=== PATIENT | female | born 1950 | race Caucasian/White ===

== ENCOUNTER → 2019-12-14 | Outpatient (CLI) | payer SELFPAY | LOC: M LABSMTC 14:16 | PROVIDERS: ATTEND Pediatrics | DX: Z20.828 Contact with and (suspected) exposure to other viral communicable diseases (principal) ==

== ENCOUNTER → 2022-11-12 | Outpatient (CLI) | payer MEDICARE, OTHER ==
[2022-11-12 16:58] LABS: BASO % 0.3 % (0.0-1.0); EOS # 0.1 10^3/uL (0.0-0.5); EOS % 0.5 % (0.0-3.0); HEMATOCRIT 41.4 % (36.0-47.0); HEMOGLOBIN 13.3 g/dl (12.0-15.5); LYMPH % 16.7 % (24.0-44.0); MEAN CORPUSCULAR HEMOGLOBIN 28.2 pg (27.0-33.0); MEAN CORPUSCULAR HGB CONC 32.1 g/dl (32.0-36.5); MEAN CORPUSCULAR VOLUME 87.9 fl (80.0-96.0); MONO # 0.8 10^3/uL (0.0-0.8); MONO % 7.1 % (2.0-8.0); NEUTROPHILS # 8.8 10^3/uL (1.5-8.5); PLATELET COUNT, AUTOMATED 242 10^3/uL (150-450); RED BLOOD COUNT 4.71 10^6/uL (4.00-5.40); WHITE BLOOD COUNT 11.8 10^3/uL (4.0-10.0)
[2022-11-12 17:05] LABS: ALBUMIN 3.7 G/DL (3.2-5.2); ALKALINE PHOSPHATASE 60 U/L (46-116); ALT/SGPT 20 U/L (7.0-40); AST/SGOT 13 U/L (<34); BILIRUBIN,TOTAL 0.5 MG/DL (0.3-1.2); BLOOD UREA NITROGEN 13 MG/DL (9-23); CARBON DIOXIDE LEVEL 29 MMOL/L (20-31); CHLORIDE LEVEL 99 MMOL/L (98-107); GLOMERULAR FILTRATION RATE > 60.0 (>39); GLUCOSE, FASTING 388 MG/DL (74-106); POTASSIUM SERUM 4.1 MMOL/L (3.5-5.1); SODIUM LEVEL 136 MMOL/L (136-145); TOTAL PROTEIN 7.3 G/DL (5.7-8.2)
== END ==
LOC: M WUC 13:14
PROVIDERS: ATTEND Physician Assistant
DX: R30.0 Dysuria (principal); R31.9 Hematuria, unspecified

== ENCOUNTER → 2023-03-12 | Outpatient (CLI) | payer MEDICARE ==
[2023-03-12 19:35] LABS: ALBUMIN 3.7 G/DL (3.2-5.2); BLOOD UREA NITROGEN 14 MG/DL (9-23); CALCIUM LEVEL 10.5 MG/DL (8.3-10.6); CARBON DIOXIDE LEVEL 31 MMOL/L (20-31); CHLORIDE LEVEL 106 MMOL/L (98-107); CREATININE FOR GFR 0.74 MG/DL (0.55-1.30); GLOMERULAR FILTRATION RATE > 60.0 (>39); GLUCOSE, FASTING 200 MG/DL (74-106); PHOSPHORUS LEVEL 3.8 MG/DL (2.4-5.1); POTASSIUM SERUM 5.1 MMOL/L (3.5-5.1); SODIUM LEVEL 144 MMOL/L (136-145)
[2023-03-12 19:45] LABS: HEMOGLOBIN A1c 6.8 % (4.0-6.0)
== END ==
LOC: M WUC 15:27
PROVIDERS: ATTEND Physician Assistant
DX: R03.0 Elevated blood-pressure reading, without diagnosis of hypertension (principal); R73.01 Impaired fasting glucose

== ENCOUNTER → 2023-03-21 | Outpatient (CLI) | payer MEDICARE ==
[2023-03-21 13:43] LABS: CREATININE, URINE 88.8 MG/DL
[2023-03-21 13:44] LABS: CHOLESTEROL RISK RATIO 4.57 (<5); HDL CHOLESTEROL 40.9 MG/DL (>40); LDL CHOLESTEROL 117.3 MG/DL (<100); MAGNESIUM LEVEL 1.9 MG/DL (1.8-2.4); NON-HDL-C 146.1 MG/DL
== END ==
LOC: M WUC 09:39
PROVIDERS: ATTEND Nurse Practitioner Family
DX: Z13.220 Encounter for screening for lipoid disorders (principal); R60.0 Localized edema; E55.9 Vitamin D deficiency, unspecified; I10 Essential (primary) hypertension; E11.9 Type 2 diabetes mellitus without complications

== ENCOUNTER 2023-07-17 10:16 | Day surgery (SDC) | payer MEDICARE, MEDICAID ==
[~2023-07-17] VITALS: Ht 152.4 cm; Wt 79.0 kg
[~2023-07-17 10:16] MED LIST: ACET500C10 PO; ATROPINE SULFATE 1% OPHTH SOLN 2ML BTL OD SCH; LISI10TA22 PO; METF500T13 PO; OFLOXACIN 0.3 % (OCUFLOX) OPTH SOL 5ML OD ONE; PHENYLEPHRINE 10% OPHTH SOL 5ML OD PRN; PHENYLEPHRINE 2.5% OPHTH SOL 2ML OD SCH; TOBRADEX OPHTH OINT 3.5 GM As Ordered ONE; TROPICAMIDE 1% OPHTH SOLN 15ML OD SCH
[2023-07-17] MEDS: LIDOCAINE 3.5 % 1ML OPHTH TOPICAL GEL OU ONE (11:01)
[2023-07-17] MEDS ORDERED: MIDAZOLAM INJ 2MG/2ML VIAL As Ordered ONE (11:34)
[2023-07-17] MEDS ORDERED: fentaNYL 100 MCG/2 ML INJECTION As Ordered ONE (11:34)
[2023-07-17] MEDS: LIDOCAINE 1% SDV 5ML VIAL As Ordered ONE (11:51)
[2023-07-17] MEDS: mitoMYcin 0.2 MG/VIAL KIT FOR OPHTHALMIC USE As Ordered ONE (11:54)
[2023-07-17 12:00] VITALS: BP 152/70; TEMP 97.1; O2SAT 99
== END 2023-07-17 12:25 | disposition home or self-care (01) ==
LOC: M SDC 10:16
PROVIDERS: ATTEND Ophthalmology
DX: H40.1111 Primary open-angle glaucoma, right eye, mild stage (principal); E11.9 Type 2 diabetes mellitus without complications; Z79.899 Other long term (current) drug therapy; Z79.84 Long term (current) use of oral hypoglycemic drugs
CPT/HCPCS: 66030; 66183; 93005; C1783; J2250; J3010; J7315

== ENCOUNTER 2023-08-07 07:00 | Day surgery (SDC) | payer MEDICARE, MEDICAID ==
[~2023-08-07] VITALS: Ht 149.9 cm; Wt 80.3 kg
[~2023-08-07 07:00] MED LIST changes: -ATROPINE SULFATE 1% OPHTH SOLN 2ML BTL OD SCH; -OFLOXACIN 0.3 % (OCUFLOX) OPTH SOL 5ML OD ONE; -PHENYLEPHRINE 10% OPHTH SOL 5ML OD PRN; -PHENYLEPHRINE 2.5% OPHTH SOL 2ML OD SCH; -TOBRADEX OPHTH OINT 3.5 GM As Ordered ONE; -TROPICAMIDE 1% OPHTH SOLN 15ML OD SCH
[2023-08-07] MEDS ORDERED: LIDOCAINE 3.5 % 1ML OPHTH TOPICAL GEL OU ONE (09:00)
[2023-08-07] MEDS ORDERED: MIDAZOLAM INJ 2MG/2ML VIAL As Ordered ONE (09:24)
[2023-08-07] MEDS ORDERED: fentaNYL 100 MCG/2 ML INJECTION As Ordered ONE (09:24)
[2023-08-07] MEDS: POVIDONE-IODINE 5% OPHTH PREP SOL 30ML As Ordered ONE (09:39)
[2023-08-07] MEDS: mitoMYcin 0.2 MG/VIAL KIT FOR OPHTHALMIC USE As Ordered ONE (09:39)
[2023-08-07] MEDS: LIDOCAINE 1% SDV 5ML VIAL As Ordered ONE (09:39)
[2023-08-07 09:45] VITALS: BP 170/81; TEMP 97.7; O2SAT 96
== END 2023-08-07 10:03 | disposition home or self-care (01) ==
LOC: M SDC 07:00
PROVIDERS: ATTEND Ophthalmology
DX: H40.812 Glaucoma with increased episcleral venous pressure, left eye (principal); I10 Essential (primary) hypertension; E11.9 Type 2 diabetes mellitus without complications; Z79.84 Long term (current) use of oral hypoglycemic drugs; Z79.899 Other long term (current) drug therapy
CPT/HCPCS: 66183; C1783; J2250; J3010; J7315

== ENCOUNTER → 2023-11-11 | Outpatient (CLI) | payer MEDICARE, MEDICAID ==
[2023-11-11 09:51] LABS: BASO # 0.1 10^3/uL (0.0-0.2); BASO % 0.7 % (0.0-1.0); EOS # 0.2 10^3/uL (0.0-0.5); EOS % 2.8 % (0.0-3.0); HEMOGLOBIN 12.7 g/dl (12.0-15.5); LYMPH # 2.9 10^3/uL (1.5-5.0); LYMPH % 40.4 % (24.0-44.0); MEAN CORPUSCULAR HEMOGLOBIN 28.3 pg (27.0-33.0); MEAN CORPUSCULAR HGB CONC 32.6 g/dl (32.0-36.5); MEAN CORPUSCULAR VOLUME 87.1 fl (80.0-96.0); MONO # 0.8 10^3/uL (0.0-0.8); MONO % 10.5 % (2.0-8.0); NEUTROPHILS # 3.3 10^3/uL (1.5-8.5); NEUTROPHILS % 45.3 % (36.0-66.0); PLATELET COUNT, AUTOMATED 246 10^3/uL (150-450); RED BLOOD COUNT 4.48 10^6/uL (4.00-5.40); WHITE BLOOD COUNT 7.2 10^3/uL (4.0-10.0)
[2023-11-11 10:12] LABS: HEMOGLOBIN A1c 7.3 % (4.0-6.0)
[2023-11-11 10:24] LABS: CREATININE, URINE 43.5 MG/DL
[2023-11-11 10:25] LABS: ALBUMIN 3.5 G/DL (3.2-5.2); ALKALINE PHOSPHATASE 42 U/L (46-116); ALT/SGPT 18 U/L (7.0-40); AST/SGOT 14 U/L (<34); BILIRUBIN,TOTAL 0.5 MG/DL (0.3-1.2); BLOOD UREA NITROGEN 15 MG/DL (9-23); CALCIUM LEVEL 10.2 MG/DL (8.3-10.6); CARBON DIOXIDE LEVEL 31 MMOL/L (20-31); CHLORIDE LEVEL 107 MMOL/L (98-107); CREATININE FOR GFR 0.83 MG/DL (0.55-1.30); GLOMERULAR FILTRATION RATE > 60.0 (>39); GLUCOSE, FASTING 138 MG/DL (74-106); POTASSIUM SERUM 4.6 MMOL/L (3.5-5.1); SODIUM LEVEL 144 MMOL/L (136-145)
[2023-11-11 10:27] LABS: MAU/CREAT RATIO 232.1 MCG/MG (0.0-30.0)
== END ==
LOC: M WUC 08:52
PROVIDERS: ATTEND Nurse Practitioner Family
DX: I10 Essential (primary) hypertension (principal); E11.9 Type 2 diabetes mellitus without complications

== ENCOUNTER → 2024-04-22 | Outpatient (CLI) | payer MEDICARE, MEDICAID ==
[2024-04-22 13:22] LABS: ALBUMIN 3.7 G/DL (3.2-5.2); BILIRUBIN,TOTAL 0.4 MG/DL (0.3-1.2); CALCIUM LEVEL 10.5 MG/DL (8.3-10.6); CHOLESTEROL RISK RATIO 4.84 (<5); CREATININE FOR GFR 1.01 MG/DL (0.55-1.30); CREATININE, URINE 109.4 MG/DL; GLOMERULAR FILTRATION RATE 56.9 (>39); HDL CHOLESTEROL 40.7 MG/DL (>40); LDL CHOLESTEROL 129.9 MG/DL (<100); MAU/CREAT RATIO 60.3 MCG/MG (0.0-30.0); NON-HDL-C 156.3 MG/DL; POTASSIUM SERUM 4.4 MMOL/L (3.5-5.1); TOTAL PROTEIN 7.3 G/DL (5.7-8.2)
[2024-04-22 13:39] LABS: HEMOGLOBIN A1c 5.8 % (4.0-6.0)
== END ==
LOC: M WUC 10:33
PROVIDERS: ATTEND Nurse Practitioner Family
DX: E11.21 Type 2 diabetes mellitus with diabetic nephropathy (principal); E78.2 Mixed hyperlipidemia

== ENCOUNTER 2024-06-24 06:03 | Day surgery (SDC) | payer MEDICARE, MEDICAID ==
[~2024-06-24] VITALS: Ht 152.4 cm; Wt 76.2 kg
[~2024-06-24 06:03] MED LIST changes: +HYDR12.55 PO; +METF-838 PO; +PHENYLEPHRINE 10% OPHTH SOL 5ML OD PRN; +TIMO0.5S20 OS; +XALA0.007 OU
[2024-06-24] MEDS: LIDOCAINE 3.5 % 1ML OPHTH TOPICAL GEL OU ONE (06:37)
[2024-06-24] MEDS: OFLOXACIN 0.3 % (OCUFLOX) OPTH SOL 5ML OD ONE (06:37)
[2024-06-24] MEDS: TROPICAMIDE 1% OPHTH SOLN 15ML OD SCH (06:37)
[2024-06-24] MEDS: CYCLOPENTOLATE 1% OPHTH SOLN 2ML BTL OD SCH (06:38)
[2024-06-24] MEDS: PHENYLEPHRINE 2.5% OPHTH SOL 2ML OD SCH (06:38)
[2024-06-24] MEDS: CIPROFLOXACIN 0.3% OPHTH OINTMENT As Ordered ONE (06:49)
[2024-06-24] MEDS ORDERED: MIDAZOLAM INJ 2MG/2ML VIAL As Ordered ONE (06:54)
[2024-06-24] MEDS ORDERED: fentaNYL 100 MCG/2 ML INJECTION As Ordered ONE (06:54)
[2024-06-24] MEDS: BSS IRRIG/VANCO(10MG)/TOBRA(5MG)/EPINEPH(1:1000-0.5CC)500ML BAG-ORONLY As Ordered ONE (07:42)
[2024-06-24] MEDS: LIDOCAINE 1% SDV 5ML VIAL As Ordered ONE (07:43)
[2024-06-24] MEDS: CEFUROXIME 1MG/0.1ML INTRACAMERAL INJ As Ordered ONE (07:45)
[2024-06-24 07:57] VITALS: BP 144/67; TEMP 96.9; O2SAT 98
== END 2024-06-24 08:14 | disposition home or self-care (01) ==
LOC: M SDC 06:03
PROVIDERS: ATTEND Ophthalmology
DX: H25.11 Age-related nuclear cataract, right eye (principal); I10 Essential (primary) hypertension; E11.9 Type 2 diabetes mellitus without complications; K21.9 Gastro-esophageal reflux disease without esophagitis; Z79.84 Long term (current) use of oral hypoglycemic drugs; Z79.899 Other long term (current) drug therapy
CPT/HCPCS: 66984; J0697; J2250; J3010; V2632

== ENCOUNTER 2024-07-08 08:23 | Day surgery (SDC) | payer MEDICARE, MEDICAID ==
[~2024-07-08] VITALS: Ht 152.4 cm; Wt 75.3 kg
[~2024-07-08 08:23] MED LIST changes: +MIDAZOLAM INJ 2MG/2ML VIAL As Ordered ONE; -PHENYLEPHRINE 10% OPHTH SOL 5ML OD PRN; +PHENYLEPHRINE 10% OPHTH SOL 5ML OS PRN; +fentaNYL 100 MCG/2 ML INJECTION As Ordered ONE
[2024-07-08] MEDS: PHENYLEPHRINE 2.5% OPHTH SOL 2ML OS SCH (09:26)
[2024-07-08] MEDS: CYCLOPENTOLATE 1% OPHTH SOLN 2ML BTL OS SCH (09:26)
[2024-07-08] MEDS: LIDOCAINE 3.5 % 1ML OPHTH TOPICAL GEL OU ONE (09:26)
[2024-07-08] MEDS: OFLOXACIN 0.3 % (OCUFLOX) OPTH SOL 5ML OS ONE (09:27)
[2024-07-08] MEDS: TROPICAMIDE 1% OPHTH SOLN 15ML OS SCH (09:27)
[2024-07-08] MEDS: CEFUROXIME 1MG/0.1ML INTRACAMERAL INJ As Ordered ONE (09:56)
[2024-07-08] MEDS: LIDOCAINE 1% SDV 5ML VIAL As Ordered ONE (09:56)
[2024-07-08] MEDS: BSS IRRIG/VANCO(10MG)/TOBRA(5MG)/EPINEPH(1:1000-0.5CC)500ML BAG-ORONLY As Ordered ONE (09:56)
[2024-07-08 10:10] VITALS: BP 146/70; TEMP 98.1; O2SAT 97
== END 2024-07-08 10:30 | disposition home or self-care (01) ==
LOC: M SDC 08:23
PROVIDERS: ATTEND Ophthalmology
DX: H25.12 Age-related nuclear cataract, left eye (principal); I10 Essential (primary) hypertension; E11.9 Type 2 diabetes mellitus without complications; K21.9 Gastro-esophageal reflux disease without esophagitis; Z79.84 Long term (current) use of oral hypoglycemic drugs; Z79.899 Other long term (current) drug therapy
CPT/HCPCS: 66984; J0697; J2250; J3010; V2632

== ENCOUNTER → 2024-11-23 | Outpatient (CLI) | payer MEDICARE, MEDICAID ==
[~2024-11-23] MED LIST changes: -MIDAZOLAM INJ 2MG/2ML VIAL As Ordered ONE; -PHENYLEPHRINE 10% OPHTH SOL 5ML OS PRN; -fentaNYL 100 MCG/2 ML INJECTION As Ordered ONE
[2024-11-23 12:36] LABS: BASO # 0.1 10^3/uL (0.0-0.2); BASO % 1.0 % (0.0-1.0); EOS # 0.6 10^3/uL (0.0-0.5); EOS % 8.8 % (0.0-3.0); LYMPH # 1.5 10^3/uL (1.5-5.0); LYMPH % 22.6 % (24.0-44.0); MONO # 1.0 10^3/uL (0.0-0.8); MONO % 14.8 % (2.0-8.0); NEUTROPHILS # 3.5 10^3/uL (1.5-8.5); NEUTROPHILS % 52.7 % (36.0-66.0); PLATELET COUNT, AUTOMATED 328 10^3/uL (150-450)
[2024-11-23 12:45] LABS: ESTIMATED AVERAGE GLUCOSE 120.0 MG/DL (60-110)
[2024-11-23 13:05] LABS: ALT/SGPT 15.0 U/L (7.0-40); AST/SGOT 23.0 U/L (<34); CALCIUM LEVEL 9.9 MG/DL (8.3-10.6); CARBON DIOXIDE LEVEL 28.0 MMOL/L (20-31); CHLORIDE LEVEL 100.0 MMOL/L (98-107); CHOLESTEROL LEVEL 183.0 MG/DL (<200); CHOLESTEROL RISK RATIO 4.91 (<5); CREATININE FOR GFR 1.06 MG/DL (0.55-1.30); GLOMERULAR FILTRATION RATE 54.8 (>39); LDL CHOLESTEROL 116.2 MG/DL (<100); MAGNESIUM LEVEL 1.6 MG/DL (1.8-2.4); NON-HDL-C 145.8 MG/DL; POTASSIUM SERUM 4.4 MMOL/L (3.5-5.1); SODIUM LEVEL 139.0 MMOL/L (136-145); TRIGLYCERIDES LEVEL 148.0 MG/DL (<150)
[2024-11-23 13:07] LABS: CREATININE, URINE 119.8 MG/DL; MALB URINE SIEMENS 148.0 MG/L; MAU/CREAT RATIO 123.5 MCG/MG (0.0-30.0)
== END ==
LOC: M WUC 10:25
PROVIDERS: ATTEND Nurse Practitioner Family
DX: E11.21 Type 2 diabetes mellitus with diabetic nephropathy (principal); E55.9 Vitamin D deficiency, unspecified; I10 Essential (primary) hypertension; E78.2 Mixed hyperlipidemia

== ENCOUNTER → 2024-11-26 | Outpatient (CLI) | payer MEDICARE, MEDICAID | LOC: M LAB 09:47 | PROVIDERS: ATTEND Physician Assistant Medical | DX: C43.9 Malignant melanoma of skin, unspecified (principal) ==

== ENCOUNTER → 2024-12-03 | Outpatient (CLI) | payer MEDICARE, MEDICAID | LOC: M LAB 11:45 | PROVIDERS: ATTEND Physician Assistant Medical | DX: C43.9 Malignant melanoma of skin, unspecified (principal) ==

== ENCOUNTER → 2024-12-17 | Outpatient (CLI) | payer MEDICARE, MEDICAID ==
[2024-12-17 15:03] LABS: PLATELET COUNT, AUTOMATED 303 10^3/uL (150-450)
== END ==
LOC: M LAB 13:51
PROVIDERS: ATTEND Physician Assistant Medical
DX: C43.9 Malignant melanoma of skin, unspecified (principal); D64.9 Anemia, unspecified

== ENCOUNTER → 2024-12-24 | Outpatient (CLI) | payer MEDICARE, MEDICAID ==
[2024-12-27 14:07] LABS: LDH LACTATE DEHYDROGENASE 211 U/L (120-246)
[2024-12-27 14:08] LABS: IRON (FE) 36 UG/DL (50-170); PERCENT SATURATION 12.8 % (13.2-45.0)
== END ==
LOC: M LAB 07:41
PROVIDERS: ATTEND Physician Assistant Medical
DX: C43.9 Malignant melanoma of skin, unspecified (principal)

== ENCOUNTER → 2025-03-01 | Outpatient (CLI) | payer MEDICARE, MEDICAID ==
[2025-03-01 08:13] LABS: PLATELET COUNT, AUTOMATED 298 10^3/uL (150-450)
[2025-03-01 08:56] LABS: LDH LACTATE DEHYDROGENASE 181.0 U/L (120-246)
[2025-03-01 08:57] LABS: ALT/SGPT 14.0 U/L (7.0-40); AST/SGOT 20.0 U/L (<34); CALCIUM LEVEL 10.0 MG/DL (8.3-10.6); CARBON DIOXIDE LEVEL 30.0 MMOL/L (20-31); CHLORIDE LEVEL 103.0 MMOL/L (98-107); CREATININE FOR GFR 1.19 MG/DL (0.55-1.30); GLOMERULAR FILTRATION RATE 47.4 (>39); POTASSIUM SERUM 4.0 MMOL/L (3.5-5.1); SODIUM LEVEL 142.0 MMOL/L (136-145)
[2025-03-01 08:59] LABS: FREE T4 1.2 NG/DL (0.89-1.76)
== END ==
LOC: M LAB 07:32
PROVIDERS: ATTEND Physician Assistant Medical
DX: C43.9 Malignant melanoma of skin, unspecified (principal)

== ENCOUNTER → 2025-03-14 | Outpatient (CLI) | payer MEDICARE, MEDICAID ==
[2025-03-14 08:28] LABS: BASO # 0.0 10^3/uL (0.0-0.2); BASO % 0.5 % (0.0-1.0); EOS # 0.3 10^3/uL (0.0-0.5); EOS % 5.4 % (0.0-3.0); LYMPH # 2.1 10^3/uL (1.5-5.0); LYMPH % 33.3 % (24.0-44.0); MONO # 0.8 10^3/uL (0.0-0.8); MONO % 12.3 % (2.0-8.0); NEUTROPHILS # 3.1 10^3/uL (1.5-8.5); NEUTROPHILS % 48.2 % (36.0-66.0); PLATELET COUNT, AUTOMATED 270 10^3/uL (150-450)
[2025-03-14 08:41] LABS: ESTIMATED AVERAGE GLUCOSE 117.0 MG/DL (60-110)
[2025-03-14 08:49] LABS: CREATININE, URINE 39.6 MG/DL
[2025-03-14 08:50] LABS: MALB URINE SIEMENS 97.0 MG/L; MAU/CREAT RATIO 244.9 MCG/MG (0.0-30.0)
[2025-03-14 08:51] LABS: ALT/SGPT 13.0 U/L (7.0-40); AST/SGOT 22.0 U/L (<34); CALCIUM LEVEL 10.5 MG/DL (8.3-10.6); CARBON DIOXIDE LEVEL 31.0 MMOL/L (20-31); CHLORIDE LEVEL 103.0 MMOL/L (98-107); CHOLESTEROL LEVEL 175.0 MG/DL (<200); CHOLESTEROL RISK RATIO 4.62 (<5); CREATININE FOR GFR 1.19 MG/DL (0.55-1.30); GLOMERULAR FILTRATION RATE 47.4 (>39); LDL CHOLESTEROL 113.8 MG/DL (<100); MAGNESIUM LEVEL 2.1 MG/DL (1.8-2.4); NON-HDL-C 137.2 MG/DL; POTASSIUM SERUM 4.0 MMOL/L (3.5-5.1); SODIUM LEVEL 141.0 MMOL/L (136-145); TRIGLYCERIDES LEVEL 117.0 MG/DL (<150)
== END ==
LOC: M LAB 07:40
PROVIDERS: ATTEND Nurse Practitioner Family
DX: Z00.00 Encounter for general adult medical examination without abnormal findings (principal); E78.2 Mixed hyperlipidemia; E55.9 Vitamin D deficiency, unspecified; I10 Essential (primary) hypertension; E11.21 Type 2 diabetes mellitus with diabetic nephropathy